=== PATIENT | male | born 1995 | race African-American/Black ===

== ENCOUNTER 2016-11-14 13:53 | Emergency (ER) | payer OTHER ==
[2016-11-14 16:01] VITALS: BP 122/88
== END 2016-11-14 16:01 | disposition home or self-care (01) ==
LOC: ED 13:53
DX: J20.9 Acute bronchitis, unspecified (principal)

== ENCOUNTER 2017-03-06 13:49 | Emergency (ER) | payer OTHER ==
[2017-03-06 14:10] VITALS: BP 135/69
== END 2017-03-06 17:36 | disposition home or self-care (01) ==
LOC: ED 13:49
DX: S62.511A Displaced fracture of proximal phalanx of right thumb, initial encounter for closed fracture (principal); J45.909 Unspecified asthma, uncomplicated; W19.XXXA Unspecified fall, initial encounter; Y93.89 Activity, other specified; Y99.8 Other external cause status; Y92.89 Other specified places as the place of occurrence of the external cause